=== PATIENT | female | born 1995 | race Two or more races ===

== ENCOUNTER 2022-10-26 09:00 | Emergency (ER) | payer OTHER ==
[~2022-10-26] VITALS: Ht 188 cm; Wt 102.1 kg
[2022-10-26 09:06] VITALS: BP 117/72; TEMP 98.3
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
--- NOTE | 2022-10-26 09:31 | NUR ---
PT RETURNED FROM [facility] VIA [facility]
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
== END 2022-10-26 10:44 ==
LOC: ER 09:08
DX: S00.83XA Contusion of other part of head, initial encounter (principal); Y04.8XXA Assault by other bodily force, initial encounter; Y93.89 Activity, other specified; Y92.89 Other specified places as the place of occurrence of the external cause; Y99.8 Other external cause status
CPT/HCPCS: 70486-TC